=== PATIENT | male | born 1945 | race Caucasian/White ===

== ENCOUNTER 2017-06-11 13:54 | Emergency (ER) | payer OTHER ==
[2017-06-11 16:48] LABS: BASOPHILS 0.4 % (0-2); EOSINOPHILS 4.1 % (0-7); HEMATOCRIT 39.7 % (42.0-54.0); HEMOGLOBIN 13.4 g/dL (13.5-17.5); IMMATURE GRANULOCYTES 0.2 % (0-5); LYMPHOCYTES 26.9 % (15-50); MCH 32.6 pg (26.0-34.0); MCHC 33.8 g/dL (31.0-37.0); MCV 96.6 fL (80.0-100.0); MEAN PLATELET VOLUME 10.6 fL (7.4-10.4); MONOCYTES 11.6 % (2-11); NEUTROPHILS 56.8 % (40-80); PLATELET COUNT 194 10x3/uL (130-400); RBC 4.11 10x6/uL (4.20-6.10); RDW 12.9 % (11.5-14.5); WBC 4.8 10x3/uL (4.8-10.8)
[2017-06-11 17:37] LABS: ALBUMIN 3.6 g/dL (3.4-5.0); ALKALINE PHOSPHATASE 88 U/L (46-116); ALT (SGPT) 29 U/L (10-68); BILIRUBIN - TOTAL 0.44 mg/dL (0.2-1.3); CALC OSMOLALITY 281 mosm/kg (275-300); CALCIUM 8.6 mg/dL (8.5-10.1); CARBON DIOXIDE 25.9 mmol/L (21.0-32.0); CHLORIDE - SERUM 102 mmol/L (98-107); CREATININE - SERUM 1.3 mg/dL (0.6-1.3); GLUCOSE 128 mg/dL (74-106); PROTEIN - SERUM 6.8 g/dL (6.4-8.2); SODIUM 138 mmol/L (136-145); UREA NITROGEN 23 mg/dL (7-18); eGFR NON AFRICAN AMERICAN 58 mL/min (90-120)
[2017-06-11 17:42] LABS: TROPONIN-I < 0.017 ng/mL (0.000-0.060)
== END 2017-06-12 00:02 | disposition short-term general hospital (02) ==
LOC: D.ER 13:54
PROVIDERS: Physician Assistant
DX: R06.02 Shortness of breath (principal); Z86.79 Personal history of other diseases of the circulatory system; Z95.1 Presence of aortocoronary bypass graft